=== PATIENT | female | born 1960 | race Two or more races ===

== ENCOUNTER 2019-08-08 19:08 | Emergency (ER) | payer SELFPAY ==
[~2019-08-08] VITALS: Ht 167.6 cm; Wt 90.7 kg
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
[2019-08-08 19:15] VITALS: BP 127/94
--- NOTE | 2019-08-08 19:15 | NUR ---
ED Nurse Note: REMOVED ALL BELONGINGS FROM PATIENT AND PLACED IN LOCKER 1. INVENTORY DONE AND PLACED IN LOCKER. PT MEDS PLACED IN SAFE.
--- NOTE | 2019-08-08 19:17 | Emergency Room Report ---
History of Present Illness General Chief Complaint: Behavioral Complaint Source: Patient, EMS Present Illness HPI Patient is a 58-year-old female who presents after increased agitation with police and paramedics. Patient reports having prior history of multiple medical problems.Per [employer] patient had recently been evicted from her living situation. She subsequently became combative with some people who had attempted to have her remove her things. Patient had reportedly had some prior psychiatric history but this is unclear. History is markedly limited by patient 's cooperation.Patient was noted to have abrasions to the right knee as well as to the left upper extremity. Patient states that she was punching and feels like her hand may be a bit swollen. Allergies: Coded Allergies: No Known Allergies (Unverified , 08/08/19) COVID-19 Screening Contact w/high risk pt: No Recent Travel to affected area: No Experienced COVID-19 symptoms?: No Patient History Past Medical History: see triage record Past Surgical History: other - Knee replacements, orthopedic surgery, chronic back pain Reviewed Nursing Documentation: PMH: Agreed; PSxH: Agreed Nursing Documentation-PMH Past Medical History: No Stated History Review of Systems All Other Systems: negative except mentioned in HPI Physical Exam Sp02 EP Interpretation: reviewed, normal General Appearance: normal inspection, well appearing, no apparent distress, alert, GCS 15 Head: atraumatic ENT: normal ENT inspection, hearing grossly normal, normal voice Neck: normal inspection, full range of motion, supple, no bony tend Respiratory: normal inspection, lungs clear, normal breath sounds, no respiratory distress, no retraction, no wheezing Cardiovascular #1: regular rate, rhythm, no edema Gastrointestinal: normal inspection, normal bowel sounds, non tender, soft, no guarding, no hernia Genitourinary: no CVA tenderness Musculoskeletal: normal inspection, back normal, normal range of motion Neurologic: alert, motor strength/tone normal, child care aide III-XII nml as tested, oriented x3, responsive, speech normal, normal inspection Psychiatric: anxious, other - Pressured speech, delusions Skin: no rash, other - Knee abrasion without laceration. Medical Decision Making Diagnostic Impression: Primary Impression: Psychosis ER Course Patient presented for agitation. Differential diagnoses include substance abuse, psychosis, bipolar disorder, depression, malingering. Because of complexity of patient's case laboratory tests and imaging studies were ordered. Patient was noted to have some prior history of psychiatric illness and per [employer] patient will be placed on a psychiatric hold for danger to self and grave disability.Labs were ordered for medical clearance purposes. Extremity was ordered of the right knee.Patient was medically cleared for psychiatric placement.Patient became disruptive in the emergency department and began yelling and screaming. Patient was medicated with Ativan Haldol and Benadryl. Labs Test 08/08/19 19:25 08/08/19 20:27 White Blood Count 14.2 K/UL (4.8-10.8) Red Blood Count 5.06 M/UL (4.20-5.40) Hemoglobin 15.0 G/DL (12.0-16.0) Hematocrit 46.3 % (37.0-47.0) Mean Corpuscular Volume 92 FL (80-99) Mean Corpuscular Hemoglobin 29.6 PG (27.0-31.0) Mean Corpuscular Hemoglobin Concent 32.3 G/DL (32.0-36.0) Red Cell Distribution Width 12.1 % (11.6-14.8) Platelet Count 449 K/UL (150-450) Mean Platelet Volume 6.0 FL (6.5-10.1) Neutrophils (%) (Auto) 85.0 % (45.0-75.0) Lymphocytes (%) (Auto) 8.0 % (20.0-45.0) Monocytes (%) (Auto) 6.0 % (1.0-10.0) Eosinophils (%) (Auto) % (0.0-3.0) Basophils (%) (Auto) 1.0 % (0.0-2.0) Sodium Level 145 MMOL/L (136-145) Potassium Level 3.7 MMOL/L (3.5-5.1) Chloride Level 104 MMOL/L (98-107) Carbon Dioxide Level 28 MMOL/L (21-32) Anion Gap 13 mmol/L (5-15) Blood Urea Nitrogen 15 mg/dL (7-18) Creatinine 1.3 MG/DL (0.55-1.30) Estimat Glomerular Filtration Rate 42.1 mL/min (>60) Glucose Level 75 MG/DL (74-106) Calcium Level 9.4 MG/DL (8.5-10.1) Total Bilirubin 0.5 MG/DL (0.2-1.0) Aspartate Amino Transf (AST/SGOT) 19 U/L (15-37) Alanine Aminotransferase (ALT/SGPT) 43 U/L (12-78) Alkaline Phosphatase 113 U/L (46-116) Total Protein 7.6 G/DL (6.4-8.2) Albumin 4.1 G/DL (3.4-5.0) Globulin 3.5 g/dL Albumin/Globulin Ratio 1.2 (1.0-2.7) Salicylates Level 1.1 ug/mL (2.8-20) Acetaminophen Level < 2 MCG/ML (10-30) Serum Alcohol < 3 mg/dL Urine Color Pale yellow Urine Appearance Clear Urine pH 6.5 (4.5-8.0) Urine Specific [place] 1.010 (1.005-1.035) Urine Protein Negative (NEGATIVE) Urine Glucose (UA) Negative (NEGATIVE) Urine Ketones Negative (NEGATIVE) Urine Blood 1+ (NEGATIVE) Urine Nitrite Negative (NEGATIVE) Urine Bilirubin Negative (NEGATIVE) Urine Urobilinogen Normal MG/DL (0.0-1.0) Urine Leukocyte Esterase Negative (NEGATIVE) Status: improved Disposition: PSYCH HOSP/UNIT Condition: Stable Anjel Arora MD Aug 08, 2019 19:17
--- NOTE | 2019-08-08 19:20 | NUR ---
ED Nurse Note: SITTER AT BEDSIDE
[2019-08-08] MEDS: LORazepam 1mg tab ORAL ONE ×2 (19:45→19:46)
--- NOTE | 2019-08-08 19:45 | NUR ---
ED Nurse Note: BLOOD DRAWN AND SENT TO LAB
--- NOTE | 2019-08-08 19:50 | NUR ---
ED Nurse Note: XR AT BEDSIDE
[2019-08-08 20:10] LABS: HEMATOCRIT 46.3 % (37.0-47.0); MEAN CORPUSCULAR VOLUME 92 FL (80-99); PLATELET COUNT 449 K/UL (150-450); RED BLOOD COUNT 5.06 M/UL (4.20-5.40); RED CELL DISTRIBUTION WIDTH 12.1 % (11.6-14.8); WHITE BLOOD COUNT 14.2 K/UL (4.8-10.8)
[2019-08-08] MEDS ORDERED: ZyPREXA Zydis 5mg tab ORAL ONE (20:15)
[2019-08-08 20:31] LABS: ANION GAP 13 mmol/L (5-15); BLOOD UREA NITROGEN 15 mg/dL (7-18); CALCIUM 9.4 MG/DL (8.5-10.1); CARBON DIOXIDE 28 MMOL/L (21-32); CHLORIDE 104 MMOL/L (98-107); CREATININE 1.3 MG/DL (0.55-1.30); POTASSIUM 3.7 MMOL/L (3.5-5.1); SODIUM 145 MMOL/L (136-145)
[2019-08-08 20:34] LABS: APPEARANCE,URINE CLEAR; BILIRUBIN, URINE NEGATIVE (NEGATIVE); COLOR,URINE PALE YELLOW; GLUCOSE, URINE (UA) NEGATIVE (NEGATIVE); KETONES,URINE NEGATIVE (NEGATIVE); LEUKOCYTE ESTERASE ,URINE NEGATIVE (NEGATIVE); NITRITE,URINE NEGATIVE (NEGATIVE); PH,URINE 6.5 (4.5-8.0); PROTEIN,URINE NEGATIVE (NEGATIVE); UROBILINOGEN,URINE NORMAL MG/DL (0.0-1.0)
[2019-08-08 20:35] LABS: ALANINE AMINOTRANSFERASE 43 U/L (12-78); ALBUMIN 4.1 G/DL (3.4-5.0); ALBUMIN/GLOBULIN RATIO 1.2 (1.0-2.7); ALKALINE PHOSPHATASE 113 U/L (46-116); ASPARTATE AMINO TRANSFERASE 19 U/L (15-37); BILIRUBIN,TOTAL 0.5 MG/DL (0.2-1.0)
[2019-08-08 21:00] VITALS: BP 133/89
--- NOTE | 2019-08-08 22:00 | NUR ---
ED Nurse Note: PATIENT IS RESTLESS AND GETTING OUT OF BED. ERMD MADE AWARE. WILL CARRY OUT ORDER
[2019-08-08] MEDS ORDERED: Haloperidol 5mg/ml Inj IM ONE (22:15)
[2019-08-08] MEDS ORDERED: LORazepam Inj 2mg/ml 1ml IM ONE (22:15)
[2019-08-08] MEDS ORDERED: DiphenhydrAMINE 50mg/ml Inj IM ONE (22:15)
[2019-08-08 23:00] VITALS: BP 141/86
--- NOTE | 2019-08-08 23:00 | NUR ---
ED Nurse Note: PT IS CALM AND SLEEPING. VSS, NAD. SITTER AT BEDSIDE
[2019-08-09 01:00] VITALS: BP 131/67
--- NOTE | 2019-08-09 01:00 | NUR ---
ED Nurse Note: PT IS CALM AND SLEEPING. VSS, NAD. SITTER AT BEDSIDE
[2019-08-09 03:00] VITALS: BP 124/79
--- NOTE | 2019-08-09 03:00 | NUR ---
ED Nurse Note: PT IS CALM AND SLEEPING. VSS, NAD. SITTER AT BEDSIDE
[2019-08-09 05:00] VITALS: BP 106/72
--- NOTE | 2019-08-09 05:00 | NUR ---
ED Nurse Note: patient is calm and sleeping. vss, nad. sitter at bedside
--- NOTE | 2019-08-09 06:52 | NUR ---
HAND-OFF: Report given to Susan ANGELO. Endorsed plan of care.
--- NOTE | 2019-08-09 07:00 | NUR ---
ED Nurse Note: Received report ninaalber Cha RN, patient is in the bed sleeping, VSS at this time, no acute disstress noticed.
--- NOTE | 2019-08-09 11:45 | NUR ---
ED Nurse Note: 5150 hold lifted
--- NOTE | 2019-08-09 11:46 | NUR ---
ED Nurse Note: called sw for consult
--- NOTE | 2019-08-09 12:03 | NUR ---
ED Nurse Note: All belongings were removed from locker # 1, and returned to the patient.
--- NOTE | 2019-08-09 12:05 | NUR ---
ED Nurse Note: SW at bed side
[2019-08-09 12:20] VITALS: BP 106/72
--- NOTE | 2019-08-09 12:20 | NUR ---
ED Nurse Note: Pt cleared by health care Provider for discharge. DC instructions/prescription was given and explained to pt and verbalized understanding of teachings. All medical deviecs such as ID band removed. Pt is AAO x4, ambulatory and left with all personal belongings.
[2019-08-09] MEDS ORDERED: RISPERIDONE1 MG ORAL (12:28)
--- NOTE | 2019-08-09 12:28 | Diagnostic Imaging Report ---
Indications: Shoulder pain, status post fall Technique: Two views of the left humerus Comparison: None Findings: No acute fractures. No dislocations. Impression: Negative
--- NOTE | 2019-08-09 12:29 | Diagnostic Imaging Report ---
Indication: Knee pain, status post fall Technique: 3 views of the right knee Comparison: None Findings: There is a right knee prosthesis. This appears well positioned and there is no worrisome periprosthetic lucency. No knee effusion demonstrated. No acute fractures. No dislocations Impression: No acute process
--- NOTE | 2019-08-09 12:53 | NUR ---
BRAIDER SETTER NOTE PT is identified as homeless. SW met w/ pt to assess pt's needs/concerns. PT presents as irritable and A&O 4x. 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 Pt is currently unemployed, has no income. PT does not receive social welfare. PT does not have social/family support. No emergency contact was provided. Pt denies hx of mental illness and substance abuse. Pt plans to return to the business property att [address] [place] [address] to p/u her car. KIRSTEN provided the map, GR and food stamp application, [employer] information, food bank information and the community resource packet including [facility] information. Tap card was provided by [employer]. Pt wears appropriate clothing.
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
== END 2019-08-09 12:20 | disposition home or self-care (01) ==
LOC: EDBD 19:08 → EMR 19:30
DX: F23 Brief psychotic disorder (principal); Z96.653 Presence of artificial knee joint, bilateral; S80.211A Abrasion, right knee, initial encounter; S40.812A Abrasion of left upper arm, initial encounter; X58.XXXA Exposure to other specified factors, initial encounter; Y92.9 Unspecified place or not applicable
CPT/HCPCS: 36415; 73060; 73562; 80053; 80307; 81003; 85025; 96372; 99285; G0480; J1200; J1630